=== PATIENT | female | born 1930 | race Caucasian/White ===

== ENCOUNTER → 2017-03-04 | Outpatient (CLI) | payer MEDICARE, OTHER ==
[~2017-03-04] MED LIST: ALBU8.5H IH; AMLO-512 PO; ASPI-1093 PO; DULO30CA2 PO; FAMO20 PO; GLIM4 PO; HYDR-3965 PO; LISI-661 PO; LORA0.5T2 PO; METF500T4 PO; RANI150T7 PO; SITA50 PO; VITAD1000 PO
[2017-03-04 14:15] VITALS: BP 114/63
== END | disposition home or self-care (01) ==
LOC: HBOWC 13:12
PROVIDERS: ATTEND Emergency Medicine
DX: E11.621 Type 2 diabetes mellitus with foot ulcer (principal); L97.511 Non-pressure chronic ulcer of other part of right foot limited to breakdown of skin; E11.51 Type 2 diabetes mellitus with diabetic peripheral angiopathy without gangrene; I25.10 Atherosclerotic heart disease of native coronary artery without angina pectoris; I10 Essential (primary) hypertension; Z98.62 Peripheral vascular angioplasty status; Z95.0 Presence of cardiac pacemaker
CPT/HCPCS: 87070; 87077; 87186; 87205; 97597; G0463